=== PATIENT | female | born 1990 | race Caucasian/White ===

== ENCOUNTER 2019-05-14 14:04 | Outpatient (RCR) | payer OTHER, SELFPAY ==
[2019-04-19 14:02] VITALS: BP 106/58; PULSE 87
--- NOTE | ~2019-05-14 | US_ITS ---
EXAMINATION: US OB limited w BPP DATE: 05/14/2019 15:09 INDICATION: Biophysical profile. Third trimester. TECHNIQUE: Real-time pelvic ultrasound was performed. COMPARISON: Ultrasound 04/19/2019 FINDINGS: There is a single living fetus in vertex presentation. The placenta is anterior. heart rate is 131 beats per minute (bpm). The amniotic fluid index is 12.5 cm, which is normal. Biophysical profile performed by the technologist: breathing (30 sec sustained breathing in 30 minutes): 2 out of 2 movement (3 gross body movements in 30 minutes): 2 out of 2 tone (one episode of zvurmwn-bfaenwjwa-ttaceyt limb movement): 2 out of 2 Amniotic fluid pocket (2 cm): 2 out of 2 Total score: 8 out of 8 IMPRESSION: 1. Single living fetus in vertex presentation. 2. Biophysical profile 8 out of 8. Reviewed, dictated and finalized at location A. [employer]
--- NOTE | ~2019-05-14 | US_ITS ---
EXAMINATION: US OB BPP wo non-stress DATE: 04/19/2019 13:36 TATTOO ARTIST INDICATION: tachycardia. TECHNIQUE: Real-time transabdominal obstetric ultrasound. FINDINGS: No prior studies for comparison. There is a single living fetus in vertex presentation. The placenta is anterior without placenta pre via. cardiac activity and movement is noted with a heart rate of 142 beats per minute. Biophysical profile: breathin of 2 movement: 2 of 2 tone: 2 of 2 Amniotic flud pocket: 2 of 2 Total score: 8 of 8 IMPRESSION: 1. Single living intrauterine in vertex presentation. 2: Total biophysical profile score of 8/8. Reviewed, dictated and finalized at location B. OO ARTIST
[2019-05-14 15:31] VITALS: BP 100/54; PULSE 90
== END 2019-06-04 13:20 | disposition home or self-care (01) ==
LOC: ANHOBOP 14:04
PROVIDERS: Visit Provider Obstetrics & Gynecology
DX: O36.8130 Decreased fetal movements, third trimester, not applicable or unspecified (principal); Z3A.32 32 weeks gestation of pregnancy; Z3A.36 36 weeks gestation of pregnancy
CPT/HCPCS: 59025; 76815; 76819

== ENCOUNTER 2019-06-01 05:32 | Inpatient (IN) | payer OTHER, SELFPAY ==
[2019-06-01] VITALS (151 sets, daily range): BP systolic 73–153; BP diastolic 33–134; PULSE 47–128; RESP 16–18; TEMP 36.4–37.6; O2SAT 83–100; BMI 36.8
[2019-06-01 06:51] LABS: Basophils Absolute Auto 0.1 K/mm3 (0.0-0.1); Basophils Percent Auto 0.4 % (0.2-1.2); Eosinophils Absolute Auto 0.1 K/mm3 (0-0.3); Eosinophils Percent Auto 0.8 % (0-4.4); Hematocrit 34.6 % (37.0-47.0); Hemoglobin 11.4 g/dL (12.0-15.0); Immature Granulocyte Absolute 0.09 K/mm3 (0.00-0.031); Immature Granulocyte Percent A 0.8 % (0-0.5); Lymphocytes Absolute Auto 1.63 K/mm3 (0.9-3.2); Lymphocytes Percent Auto 13.9 % (18.3-44.2); Mean Corpuscular HGB Conc 32.9 g/dl (32-36); Mean Corpuscular Hemoglobin 27.9 pg (26-34); Mean Corpuscular Volume 84.8 fl (80-100); Mean Platelet Volume 10.1 fl (7.4-10.4); Monocytes Absolute Auto 0.6 K/mm3 (0.1-0.6); Monocytes Percent Auto 5.4 % (2.6-8.5); Neutrophils Absolute Auto 9.3 K/mm3 (1.3-6.7); Neutrophils Percent Auto 78.7 % (45.5-73.1); Platelet Count Result 306 k/mm3 (150-375); Red Blood Count 4.08 M/mm3 (4.2-5.4); Red Cell Distribution Width 14.1 % (11.5-14.5); White Blood Count 11.8 K/mm3 (4.5-10.0)
[2019-06-01] MEDS: LACTATED RINGERS 1,000 ML 125 ML IV CONT ×3 (06:59→10:45)
--- NOTE | 2019-06-01 07:00 | LDADM ---
This patient, Megan Ruiz, was admitted to Labor/Delivery/Recovery 107 on 06/01/19 at 05:32. Plans for labor, pain management and were discussed with patient. Patient/family oriented to hospital policies and general routines including ID bracelet, bed and alarms, visiting hours, pain management, procedures, bathroom and other care routines, personal items, smoking policy, room service/diet and guest tray routines, security routines, and visiting hours. Patient/Family are encouraged to report perceived risks to care and to ask questions if they do not understand what they are told or what they should do. See OBIX for further documentation.
--- NOTE | 2019-06-01 09:22 | WPDANESEPP ---
Anes - Eval Pre Procedure Procedure: Labor Epidural Date/Time: 06/01/19 09:22 Pre Op Diagnosis: iol Patient Data Age: 28 Gender: F Height: 1.65 m Weight: 100.5 kg Last Vital Signs Temp 37.2 C 06/01/19 09:00 Pulse 81 06/01/19 09:00 Resp 18 06/01/19 07:00 BP 117/75 06/01/19 09:00 Allergies Allergy/AdvReac Type Severity Reaction Status Date / Time No Known Allergies Allergy Verified 04/19/19 12:49 Home Medications Medication Instructions Recorded Confirmed Type PNV cmb#95-ferrous fumarate-FA 1 tablet PO DAILY 04/19/19 04/19/19 History [] Laboratory Tests 06/01/19 06/01/19 06/01/19 06:43 06:43 06:43 WBC 11.8 K/mm3 H K/mm3 (4.5-10.0) RBC 4.08 M/mm3 L M/mm3 (4.2-5.4) Hgb 11.4 g/dL L g/dL (12.0-15.0) Hct 34.6 % L % (37.0-47.0) MCV 84.8 fl fl (80-100) MCH 27.9 pg pg (26-34) MCHC 32.9 g/dl g/dl (32-36) RDW 14.1 % % (11.5-14.5) Plt Count 306 k/mm3 k/mm3 (150-375) MPV 10.1 fl fl (7.4-10.4) Immature Gran % (Auto) 0.8 % H % (0-0.5) Neut % (Auto) 78.7 % H % (45.5-73.1) Lymph % (Auto) 13.9 % L % (18.3-44.2) [place] % (Auto) 5.4 % % (2.6-8.5) Eos % (Auto) 0.8 % % (0-4.4) Baso % (Auto) 0.4 % % (0.2-1.2) Lymph # (Auto) 1.63 K/mm3 K/mm3 (0.9-3.2) [place] # (Auto) 0.6 K/mm3 K/mm3 (0.1-0.6) Eos # (Auto) 0.1 K/mm3 K/mm3 (0-0.3) Baso # (Auto) 0.1 K/mm3 K/mm3 (0.0-0.1) Abs Immat Gran (auto) 0.09 K/mm3 H K/mm3 (0.00-0.031) Absolute Neuts (auto) 9.3 K/mm3 H K/mm3 (1.3-6.7) Absolute Nucleated RBC 0.0 K/mm3 K/mm3 (0.0-0.012) Nucleated RBC % 0.0 % % (0.0-0.2) RPR Pending Blood Type O Positive Antibody Screen Negative Patient hx anesthesia problems: none Family hx anesthesia problems: none PMFSH Family History Family History Other No pertinent family history Social History Social History Smoking status: Never smoker Second hand tobacco smoke exposure: No Substance use: never Gender identity (if verbalized by the patient): Female Spiritual care concerns: No Exam Day of Procedure 06/01/19 09:22 Patient weight: obese Lungs: normal air movement Airway: Mallampati scale class III Neurological: alert and oriented
[2019-06-01 10:56] LABS: Rapid Plasma Reagin Non-Reactive (NonReactive)
[2019-06-01] MEDS: PHENYLEPHRINE 1,000 MCG/10 ML SYRINGE 100 MCG IV PUSH ×2 (11:39→11:44)
--- NOTE | 2019-06-01 13:02 | PM.IMHP ---
H&P: HPI History of Present Illness Chief complaint: iol Narrative: Megan Ruiz is a 28 yo @ 39.0wks who presented for induction of labor. She has been 4-5cm dilated for 2-3 weeks. She reports occasional contraction. No leakage of fluid or bleeding. No CP, SOB, fever, chills, headache, vision changes. Review of Systems Review of Systems: All systems reviewed & are unremarkable except as noted in HPI and below PMFSH Family History Family History Other No pertinent family history Social History Social History Smoking status: Never smoker Second hand tobacco smoke exposure: No Substance use: never Gender identity (if verbalized by the patient): Female Spiritual care concerns: No Meds Home Medications and Allergies Home Medications Medication Instructions Recorded Confirmed Type PNV cmb#95-ferrous fumarate-FA 1 tablet PO DAILY 04/19/19 06/01/19 History [] Allergies Allergy/AdvReac Type Severity Reaction Status Date / Time No Known Allergies Allergy Verified 04/19/19 12:49 Vital Signs Vital Signs - 24 hr 06/01/19 06:46 06/01/19 07:00 06/01/19 07:30 Temperature 37.6 C Pulse Rate 101 H 96 90 Respiratory Rate 18 Blood Pressure 94/69 L 107/63 125/71 Pulse Oximetry 06/01/19 08:01 06/01/19 08:52 06/01/19 09:00 Temperature 37.2 C Pulse Rate 97 79 81 Respiratory Rate Blood Pressure 109/52 L 115/70 117/75 Pulse Oximetry 06/01/19 09:35 06/01/19 09:40 06/01/19 09:45 Temperature Pulse Rate 82 Respiratory Rate Blood Pressure 109/73 Pulse Oximetry 100 100 97 06/01/19 09:50 06/01/19 09:55 06/01/19 09:57 Temperature Pulse Rate 101 H 89 Respiratory Rate Blood Pressure 119/71 114/90 Pulse Oximetry 100 99 06/01/19 09:59 06/01/19 10:00 06/01/19 10:03 Temperature Pulse Rate 92 87 93 Respiratory Rate Blood Pressure 114/70 109/69 110/59 L Pulse Oximetry 99 06/01/19 10:05 06/01/19 10:06 06/01/19 10:08 Temperature Pulse Rate 81 84 86 Respiratory Rate Blood Pressure 105/59 L 113/60 110/59 L Pulse Oximetry 100 06/01/19 10:09 06/01/19 10:10 06/01/19 10:12 Temperature Pulse Rate 84 84 Respiratory Rate Blood Pressure 108/60 102/57 L Pulse Oximetry 99 06/01/19 10:14 06/01/19 10:16 06/01/19 10:18 Temperature 36.6 C Pulse Rate 89 81 93 Respiratory Rate Blood Pressure 104/60 102/62 112/63 Pulse Oximetry 99 06/01/19 10:19 06/01/19 10:20 06/01/19 10:22 Temperature Pulse Rate 82 93 Respiratory Rate Blood Pressure 107/64 103/62 Pulse Oximetry 99 06/01/19 10:24 06/01/19 10:26 06/01/19 10:28 Temperature Pulse Rate 102 H 90 96 Respiratory Rate Blood Pressure 100/60 105/57 L 100/59 L Pulse Oximetry 99 06/01/19 10:29 06/01/19 10:30 06/01/19 10:32 Temperature Pulse Rate 78 96 Respiratory Rate Blood Pressure 99/66 L 98/60 L Pulse Oximetry 98 06/01/19 10:34 06/01/19 10:36 06/01/19 10:39 Temperature Pulse Rate 96 96 99 Respiratory Rate Blood Pressure 90/53 L 94/59 L 83/58 L Pulse Oximetry 98 98 06/01/19 10:40 06/01/19 10:42 06/01/19 10:43 Temperature Pulse Rate 91 99 88 Respiratory Rate Blood Pressure 86/53 L 81/52 L 97/61 L Pulse Oximetry 06/01/19 10:44 06/01/19 10:47 06/01/19 10:49 Temperature Pulse Rate 85 84 93 Respiratory Rate Blood Pressure 101/61 107/58 L 109/63 Pulse Oximetry 98 100 06/01/19 10:51 06/01/19 10:53 06/01/19 10:54 Temperature Pulse Rate 84 89 84 Respiratory Rate Blood Pressure 108/53 L 107/55 L 102/62 Pulse Oximetry 100 06/01/19 10:56 06/01/19 10:58 06/01/19 11:01 Temperature Pulse Rate 90 88 87 Respiratory Rate Blood Pressure 104/57 L 107/54 L 105/53 L Pulse Oximetry 100 100 06/01/19 11:03 06/01/19 11:04 06/01/19 11:05 Tem
--- NOTE | 2019-06-01 13:40 | PM.OBPRVD ---
OB - Delivery Note Procedure Delivery date: 06/01/19 Procedure: progressed to complete dilation and began pushing with good maternal effort, however, severe variables were noted. Right mediolateral episiotomy was cut and head immediately delivered. Nuchal cord x2 was palpated but delivered through. The shoulders and body delivered without complications. She delivered a male , Apgars 8/9, weight pending. He was immediately placed skin to skin and stimulated by the pediatric nurse. The mouth and nose were bulb suctioned and he had spontaneous cry. The umbilical cord was then clamped and cut. A segment of the cord was then collected for cord gases. The remaining cord blood was collected for typing. With pitocin running, the placenta then delivered with gentle traction on the cord. The cervix, vagina, and perineum were inspected and no other lacerations were noted. The RML episiotomy was then repaired in the normal fashion using 2-0 Vicryl. Good hemostasis was noted and the fundus was firm. Sponge, lap, needle, and instrument counts were correct at the end of the procedure. and her son were left skin to skin in the birthing suite in a stable condition. Induction method: AROM and per pitocin protocol Delivery monitor: internal FHT and internal uterine Route of delivery: Indication for instrumentation: nonreassuring FHR tracing Episiotomy description: Right Mediolateral Laceration description: None Delivery repair: vicryl Specimen: No Estimated blood loss (mL): 350 Anesthesia type: Epidural Disposition: floor Baby Date of : 06/01/19 Time of : 13:18 Weeks of gestation at delivery: 39 Infant gender: Male presentation: vertex position: Right Occiput Anterior Placenta delivery description: Expressed cord vessel description: 3 Vessels and Nuchal Cord (x2) score one minute: 8 score five minutes: 9
[2019-06-01] MEDS: ACETAMINOPHEN 325 MG TABLET 650 MG PO ×2 (14:47→19:45)
[2019-06-01] MEDS: BENZOCAINE 20% AER SPR (*SP) 56 GM CAN 1 SPRAY TOPICAL (14:49)
[2019-06-01] MEDS: WITCH HAZEL 40 PADS 1 PAD TOPICAL (14:49)
[2019-06-01] MEDS: IBUPROFEN 600 MG TABLET PO ×2 (16:19→22:05)
[2019-06-01] MEDS: CYCLOBENZAPRINE HCL 10 MG TABLET PO (22:36)
[2019-06-02] MEDS: ACETAMINOPHEN 325 MG TABLET 650 MG PO ×4 (00:15→18:52)
[2019-06-02 05:42] LABS: Hematocrit 31.2 % (37.0-47.0); Hemoglobin 9.9 g/dL (12.0-15.0)
[2019-06-02] MEDS: IBUPROFEN 600 MG TABLET PO ×3 (06:01→18:53)
[2019-06-02 08:30] VITALS: BP 129/83; PULSE 80; RESP 18; TEMP 36.6
--- NOTE | 2019-06-02 09:00 | WPDANLDPN2 ---
Anes-Prog Note L&D Date/Time: 06/02/19 09:37 Comfortable throughout: labor and delivery Neuraxial method: epidural Epidural/Spinal procedure site: clean & non-tender Neuro status: Neuro function grossly intact. Cardiovascular status: normal Respiratory status: normal Airway patency: baseline Mental status: baseline Post-Op hydration status: normal Vital Signs: Last Vital Signs Temp 36.4 C 06/01/19 19:35 Pulse 70 06/01/19 19:35 Resp 18 06/01/19 19:35 BP 120/63 06/01/19 19:35 Pulse Ox 100 06/01/19 19:35 I/O: Intake & Output 06/01/19 06/02/19 06/02/19 23:59 07:59 15:59 Output Total 445 Balance -445 Post-procedural complaints: other (Pt with complain of headache and posterior neck and shoulder pain (01/11). ) Patient feedback: Patient satisfied with anesthetic care. Other findings: Pt attempted conservative measures over night, request Epidural Blood Patch
--- NOTE | 2019-06-02 09:15 | PC.NURSE ---
Anesthesia here to see patient and do a blood patch.
--- NOTE | 2019-06-02 09:40 | P.PCNANE_ITS ---
Anes - Epidural Blood Patch PN Date/Time: 06/02/19 09:40 Consent: I have discussed with the patient/family/POA, the rationale of a lumbar epidural autologous blood patch for the treatment of post-dural puncture headache (spinal headache), including associated potential risks, benefits, comp lications and side effects. I have also discussed more conservative treatment options such as intravenous hydration, caffeine and non-prescription analgesics. The patient/family/POA, understand(s) and wish(es) to proceed with epidural autologous blood patch as treatment for the patient's post-dural puncture headache. Time-Out: A pre-procedural Time-Out was completed immediately before starting the procedure and confirmed: Patient Identification, Site, Procedure, Patient Position and the Availability of Requisite Equipment. Clinical Indications: Frontal Headache 10/10, posterior neck and shoulder Pain 10/10. Worse when standing or sitting. Pt attempted conservative treatment (Fluids, caffeine, norco, flexeril, heating pad) throught the night. She requests Epidural Blood Patch. Epidural space easily accessed at L3-4, LORT to air at 7 cm. 20ml blood drawn Sterilely per Genet Chu RN and injected easily through Touhy Needle. VSS throughout. Assisted to supine position with HOB elevated 20 degrees. Immediate relief of headache and neck Pain. (05/14) Epidural Insertion Note Patient position: sitting Skin prep: chlorhexidine and sterile drape Needle: 18 gauge Tuohy-Schliff Technique: loss of resistance (to Air) Skin anesthesia: lidocaine 1% Observations: tolerated well Complications: none
--- NOTE | 2019-06-02 12:47 | P.PNOB_ITS ---
OB - PN: Subj Subjective Date/time seen: 06/02/19 12:47 is a 28yo P1011 s/p , PPD#1 She reports doing ok, she reports significant neck and back pain. She was also reporting significant headaches, especially with sitting/standing. She underwent an epidural blood patch this AM and reports she immediately felt better, but continues to notice slight discomfort with sitting/standing. Otherwise, she is t olerating regular diet w/o N/V. She has ambulated w/o s/sx of anemia. She has passed flatus and voided spontaneously. She reports normal vaginal bleeding. She is bottle feeding, but may attempt breast feeding, reports nipple discomfort. She does desire a circumcision for her son. No STEWARD, CP, SOB, fever chills, dizziness. OB - PN: Obj Data Labs CBC & Chem 7: 06/02/19 05:26 Labs: Laboratory Results - last 24 hr 06/02/19 05:26 Hgb 9.9 L Hct 31.2 L OB - PN A/P Plan day: 1 Plan: routine care Comments: - Routine PP care - Pain meds prn; encouraged her to take ibuprofen and tylenol q4h to help with pain; can apply heating pack to sore muscles that's likely pulled or strained. Ok to take Flexeril 10mg PO QHS if NOT breast feeding - Regular diet - If headache not improved this afternoon, re-consult to anesthesia-- pt encouraged to stay hydrated and drink caffeine. May consider MgSO4 + Reglan for migraine cocktail - Ambulation encouraged - Bottle feeding - Anticipate d/c home tomorrow. Pain, fever, bleeding, HTN return precautions g iven. Pelvic rest x4 wks. F/u in clinic in 4 weeks. Time Spent With Patient Time: Total time spent is greater than 50% in coordination of care (as documented) at patient's floor/unit and/or counseling patient: Review of Systems Review of Systems: All systems reviewed & are unremarkable except as noted in HPI and below Exam Const: General: comfortable, no acute distress, alert and awake Other: Point tenderness over the left trapezius muscle Resp: Effort & Inspection: normal respiratory effort Auscultation: clear to auscultation bilaterally Cardio: Rate: regular rate GI: Auscultation: normal bowel sounds Other: fundus firm below umbilicus : Other: normal lochia on pad Psych: Appearance: grossly normal Affect: normal affect Attitude: cooperative
[2019-06-02] MEDS: DOCUSATE SODIUM 100 MG CAPSULE PO (17:50)
[2019-06-02] MEDS: POLYSACCHARIDE IRON COMPLEX 150 MG CAPSULE PO (17:50)
[2019-06-02 20:30] VITALS: BP 124/67; PULSE 91; RESP 16; TEMP 37.6; O2SAT 100
--- NOTE | 2019-06-02 21:15 | PC.NURSE ---
Patient viewed the discharge video Mother & Baby Care, The First Two Weeks . Patient was given the opportunity and encouraged to ask questions. Patient verbalized understanding of information shared and has been given the mother/baby guide for home reference.
[2019-06-03] MEDS: POLYSACCHARIDE IRON COMPLEX 150 MG CAPSULE PO (07:32)
[2019-06-03] MEDS: IBUPROFEN 600 MG TABLET PO (07:32)
[2019-06-03] MEDS: ACETAMINOPHEN 325 MG TABLET 650 MG PO (07:33)
[2019-06-03] MEDS: DOCUSATE SODIUM 100 MG CAPSULE PO (07:33)
[2019-06-03 07:35] VITALS: BP 127/71; PULSE 95; RESP 18; TEMP 36.4
--- NOTE | 2019-06-03 09:12 | PM.OBPNVD ---
OB - PN: Subj Subjective Date/time seen: 06/03/19 09:12 is a 28yo P1011 s/p , PPD#2 She reports she is doing much better today, showered and feels better. She continues to have some neck pain and headaches. She has been taking the tylenol and ibuprofen around the clock. She is also drinking caffeine which is helping the headaches. Otherwise, she is tolerating regular diet w/o N/V. She has ambulated w/o s/sx of anemia. She has passed flatus and voided spontaneously. She reports normal vaginal bleeding. She is bottle feeding. No CP, SOB, vision changes, fever chills, dizziness. OB - PN: Obj Data Labs CBC & Chem 7: 06/02/19 05:26 OB - PN A/P Plan day: 2 Plan: routine care and discharge home Comments: - Routine PP care - Pain meds prn-- rxs sent to pharmacy - Regular diet - Spinal headache-- s/p blood patch on 06/02/19, pt encouraged to stay hydrated and drink caffeine. - Ambulation encouraged - Bottle feeding - D/c home today. Pain, fever, bleeding, HTN return precautions given. Pelvic rest x4 wks. F/u in clinic in 3-4 weeks. Time Spent With Patient Time: Total time spent is greater than 50% in coordination of care (as documented) at patient's floor/unit and/or counseling patient: Review of Systems Review of Systems: All systems reviewed & are unremarkable except as noted in HPI and below Exam Const: General: comfortable, no acute distress, alert and awake Resp: Effort & Inspection: normal respiratory effort Auscultation: clear to auscultation bilaterally Cardio: Rate: regular rate GI: Auscultation: normal bowel sounds Other: fundus firm below umbilicus Psych: Appearance: grossly normal Attitude: cooperative
[2019-06-05 09:49] VITALS: BP 121/79; PULSE 81; RESP 20; TEMP 36.6
--- NOTE | 2019-06-06 08:34 | PM.OBDSVD ---
DS: Diagnosis Admitting Diagnosis Admitting Diagnosis: Encounter for supervision of normal , unspecified, unspecified trimester Discharge Diagnosis (1) : Code(s): Z34.90 - Encounter for supervision of normal , unspecified, unspecified trimester Status: Acute OB - DS: Summary OB Procedures : None OB Procedures Intrapartum: Spontaneous Vag Delivery OB Procedures: : None Peripartum Data Delivery Method: Natural Vaginal Episiotomy description: Right Mediolateral complications: spinal headache (s/p blood patch) 1: Gender: Male (s/p circumcision) Disposition of : home Status at Discharge Functional status at discharge: independent ambulation Overall status at discharge: patient is back to baseline Time Spent with Patient Time attestation: Total time spent providing and/or coordinating discharge services: Exam Narrative: Exam Narrative: Const: General: comfortable, no acute distress, alert and awake Resp: Effort & Inspection: normal respiratory effort Auscultation: clear to auscultation bilaterally Cardio: Rate: regular rate GI: Auscultation: normal bowel sounds Other: fundus firm below umbilicus Psych: Appearance: grossly normal Attitude: cooperative Discharge Plan Discharge Attending physician on discharge: Arlene Castle Discharging Clinician: Arlene Castle Anticipated Discharge Date/Time: 06/03/19 13:00 Patient Disposition: Home, Self-Care Activity: pelvic rest Diet: regular Discharge Instructions: Education: Mom and Baby Guide Given to: Mother Follow-Up: Call your delivering provider's office for an appointment to be seen in: 4-6 weeks Mom and baby should come to the [facility] for the follow-up appointment. Appointment Date/Time: June 05, 2019 at 10:00 am What to expect at your follow-up visit: Physical Assessment Call [phone] if you are unable to keep your appointment time. BREAST CARE: 1. Wear a snug supportive bra. 2. For engorgement discomfort: Bottle Feeding: A. May apply ice packs EPISIOTOMY/PERINEAL CARE: 1. Until bleeding stops, use your angy bottle after urinating 2. Change your pad frequently throughout the day 3. You may take sitz baths several times a day (fill your bathtub with warm water and soak for 20 minutes.) Do NOT bathe in the water 4. No tub baths until seen by your physician - You may shower ACTIVITY: 1. Rest as much as possible. 2. Do not exercise or lift anything heavier than your baby (such as laundry or other children.) 3. Avoid stairs or driving as much as possible. 4. Do not put anything into the vagina. No douching, tampons, or sexual activity until seen by physician. NOTIFY PHYSICIAN IF YOU HAVE ANY QUESTIONS OR IF ANY OF THE FOLLOWING SYMPTOMS OCCUR: 1. If your episiotomy becomes red, swollen, or more painful than what you have experienced in the hospital. 2. If your vaginal bleeding becomes foul smelling. 3. If your vaginal bleeding becomes more heavy than a period or if your bleeding changes from pink to bright red. However, you may pass an occasional walnut-sized clot once or twice for the first week . 4. If you experience a sharp, shooting pain in you calves. 5. If you discover a hard, reddened area on your breast or if you experience flu-like symptoms. DIET: 1. Eat regular, well-balanced meals. 2. Drink plenty of fluids daily. If , drink to thirst. Stand Alone Forms: General Discharge Information Follow-up/Referrals: Arlene Castle MD [Physician] - Discharge Medications: New acetaminophen [Mapap (acetaminophen)] 325 mg Tablet 650 mg PO Q4H PRN (Reason: Mild Pain (1-3) Or Headache) 7 Days Qty: 40 RF: 0 ibuprofen 600 mg Tablet 600 mg PO Q6H PRN (Reason: Cramping) 10 Days Qty: 30 RF: 0 Continued PNV cmb#95-ferrous fumarate-FA [] 28 mg iron- 800 mcg
== END 2019-06-03 12:41 | disposition home or self-care (01) | DRG 560 ==
LOC: ANHLDR 15:10 → ANHOB2 17:18
PROVIDERS: Admitting Provider Obstetrics & Gynecology; Visit Provider Obstetrics & Gynecology
DX: O76 Abnormality in fetal heart rate and rhythm complicating labor and delivery (principal); O69.2XX0 Labor and delivery complicated by other cord entanglement, with compression, not applicable or unspecified; O99.214 Obesity complicating childbirth; E66.9 Obesity, unspecified; O09.33 Supervision of pregnancy with insufficient antenatal care, third trimester; Z3A.39 39 weeks gestation of pregnancy; Z37.0 Single live birth; O89.4 Spinal and epidural anesthesia-induced headache during the puerperium; G97.1 Other reaction to spinal and lumbar puncture
CPT/HCPCS: 36415; 85014; 85018; 85025; 86592; 86850; 86900; 86901; A9270; J2370; J2590; J2795; J7120

== ENCOUNTER 2020-06-25 18:48 | Inpatient (IN) | payer OTHER, SELFPAY ==
[2020-06-25] VITALS (7 sets, daily range): BP systolic 105–119; BP diastolic 51–65; PULSE 75–89; TEMP 36.7–37.4; BMI 38.5
--- NOTE | 2020-06-25 19:08 | P.HP_ITS ---
H&P: HPI History of Present Illness Date/Time: 06/25/20 19:08 is a 30yo @ 37.6wks (PRASHANTH 07/[birth year]) who presents to L&D for labor. She was seen in clinic today w/ complaints of pressure/occasional contractions and increased vaginal discharge. She was found to be 6/50/-2. She reports good movement. No vaginal bleeding. No other issues. Her is complicated by - Short interval (last delivery 05/2019) - GBS + (bacteruria) - Depression/anxeity; now on zoloft - Late transfer of care from [place] @ 36wks - Back/hip pain & sciatica - Marijuana use - Obesity Chief Complaint: labor Review of Systems Review of Systems: All systems reviewed & are unremarkable except as noted in HPI and below (HPI) [facility] Family History Family History Other No pertinent family history Social History Social History Smoking status: Never smoker Second hand tobacco smoke exposure: No Substance use: never Gender identity (if verbalized by the patient): Female Spiritual care concerns: No Meds Home Medications and Allergies Home Medications Medication Instructions Recorded Confirmed Type PNV cmb#95-ferrous fumarate-FA 1 tablet PO DAILY 04/19/19 06/01/19 History [] acetaminophen [Mapap 650 mg PO Q4H PRN 7 Days #40 tablet 06/03/19 Rx (acetaminophen)] ibuprofen 600 mg PO Q6H PRN 10 Days #30 06/03/19 Rx tablet Allergies Allergy/AdvReac Type Severity Reaction Status Date / Time No Known Allergies Allergy Verified 04/19/19 12:49 Exam Const: General: cooperative, healthy appearing and comfortable Resp: Effort & Inspection: normal respiratory effort and able to speak in complete sentences Cardio: Rate: regular rate GI: GI Palp: No abdominal tenderness and Yes Soft to palpation : Other: FHT's: 135's/ mod layla/ + accels/ occasional mild variable - cat 2, reassuring TOCO; irregular ctx's Cervix: 6/50/-2 Membranes: intact, GBS + Presentation: cephalic Skin: General skin exam: normal color Neuro: General: patient oriented x3 Extrem: General: normal to inspection Psych: Appearance: grossly normal Affect: normal affect Attitude: cooperative Assessment and Plan Assessment and plan (1) Active labor at term: Status: Acute (2) GBS (group B streptococcus) UTI complicating : Qualifiers: Trimester: first trimester Qualified Code(s): O23.41 - Unspecified infection of urinary tract in , first trimester; B95.1 - Streptococcus, group B, as the cause of diseases classified elsewhere Code(s): O23.40 - Unspecified infection of urinary tract in , unspecified trimester; B95.1 - Streptococcus, group B, as the cause of diseases classified elsewhere Status: Acute Additional Plan - Admit to L&D as pt was found to be 6cm; GBS + - GBS ppx with ampicillin; plan to AROM after treatment; low dose pitocin augmentation - Continuous monitoring; overall reassuring - Epidural PRN pain
--- NOTE | 2020-06-25 19:26 | WPDHPUPDATE1 ---
History and Physical Update Update Date/Time: 06/25/20 19:26 History and Physical has been reviewed, including an updated exam of the patient. There are NO changes in the patient's condition. Risks, benefits, and alternatives have been discussed and questions answered. Patient agrees to proceed with procedure.
[2020-06-25 19:29] LABS: Basophils Absolute Auto 0.1 K/mm3 (0.0-0.1); Basophils Percent Auto 0.5 % (0.2-1.2); Eosinophils Absolute Auto 0.1 K/mm3 (0-0.3); Eosinophils Percent Auto 0.5 % (0-4.4); Hematocrit 34.6 % (37.0-47.0); Hemoglobin 11.4 g/dL (12.0-15.0); Immature Granulocyte Absolute 0.09 K/mm3 (0.00-0.031); Immature Granulocyte Percent A 0.7 % (0-0.5); Lymphocytes Absolute Auto 2.03 K/mm3 (0.9-3.2); Lymphocytes Percent Auto 15.7 % (18.3-44.2); Mean Corpuscular HGB Conc 32.9 g/dl (32-36); Mean Corpuscular Hemoglobin 27.8 pg (26-34); Mean Corpuscular Volume 84.4 fl (80-100); Mean Platelet Volume 9.8 fl (7.4-10.4); Monocytes Absolute Auto 0.5 K/mm3 (0.1-0.6); Monocytes Percent Auto 3.8 % (2.6-8.5); Neutrophils Absolute Auto 10.2 K/mm3 (1.3-6.7); Neutrophils Percent Auto 78.8 % (45.5-73.1); Platelet Count Result 291 k/mm3 (150-375); Red Cell Distribution Width 14.5 % (11.5-14.5); White Blood Count 12.9 K/mm3 (4.5-10.0)
[2020-06-25] MEDS: AMPICILLIN 2 GM/NS 100 ML 2 GM/100 ML BAG IVPB (19:30)
[2020-06-25] MEDS: LACTATED RINGERS 1,000 ML 125 ML IV CONT ×2 (19:30→23:55)
--- NOTE | 2020-06-25 19:33 | LDADM ---
This patient, Megan Ruiz, was admitted to Labor/Delivery/Recovery 106 on 06/25/20 at 18:48. Plans for labor, pain management and were discussed with patient. Patient/family oriented to hospital policies and general routines including ID bracelet, bed and alarms, visiting hours, pain management, procedures, bathroom and other care routines, personal items, smoking policy, room service/diet and guest tray routines, security routines, and visiting hours. Patient/Family are encouraged to report perceived risks to care and to ask questions if they do not understand what they are told or what they should do. See OBIX for further documentation.
[2020-06-25 20:04] LABS: Amphetamine Screen Urine Negative (Negative); Barbiturate Screen Urine Negative (Negative); Benzodiazepines Screen Urine Negative (Negative); Cannabinoid Screen Urine Positive (Negative); Cocaine Screen Urine Negative (Negative); Methadone Screen Urine Negative (Negative); Opiate Screen Urine Negative (Negative); Phencyclidine Screen Urine Negative (Negative)
[2020-06-25] MEDS: OXYTOCIN 30 UNITS/NS 500 ML 30 UNITS/500 ML BAG IV CONT (20:55)
[2020-06-25] MEDS: FAMOTIDINE 20 MG/2 ML VIAL IV PUSH (21:38)
--- NOTE | 2020-06-25 23:31 | PM.OBPNLAB ---
Pain Control Date/time seen: 06/25/20 23:31 Pain control: tolerating well Comments: will likely want epidural soon; s/p ampicillin x4hrs Pelvic Exam Dilation (cm): 6 Effacement (%): 70 station: -1 Amniotic membrane status: Ruptured (AROM, clear 2330) Contractions Monitor mode: External Contraction frequency: 3 Contraction pattern: Regular Contraction intensity: Moderate Status status: Category l Assessment and Plan Pitocin rate (mU/min): 6 Assessment: active labor Plan: continuous present management
[2020-06-25] MEDS: AMPICILLIN 1 GM/NS 50 ML 1 GM/50 ML BAG IVPB (23:53)
--- NOTE | 2020-06-25 23:59 | WPDANESEPP ---
Anes - Eval Pre Procedure Procedure: labor epidural Date/Time: 06/25/20 23:59 Surgeon: Tin Pre Op Diagnosis: Advanced Dilation Patient Data Age: 30 Gender: F Height: 1.65 m Weight: 105 kg Last Vital Signs Temp 37.0 C 06/25/20 23:33 Pulse 75 06/25/20 23:00 BP 119/64 06/25/20 23:00 Allergies Allergy/AdvReac Type Severity Reaction Status Date / Time No Known Allergies Allergy Verified 04/19/19 12:49 Home Medications Medication Instructions Recorded Confirmed Type PNV cmb#95-ferrous fumarate-FA 1 tablet PO DAILY 04/19/19 06/25/20 History [] famotidine 20 mg PO POST-TRANSFUSION 06/25/20 06/25/20 History sertraline 50 mg PO DAILY 06/25/20 06/25/20 History Laboratory Tests 06/25/20 06/25/20 06/25/20 19:21 19:21 19:21 WBC RBC Hgb Hct MCV MCH MCHC RDW Plt Count MPV Immature Gran % (Auto) Neut % (Auto) Lymph % (Auto) [place] % (Auto) Eos % (Auto) Baso % (Auto) Lymph # (Auto) [place] # (Auto) Eos # (Auto) Baso # (Auto) Abs Immat Gran (auto) Absolute Neuts (auto) Absolute Nucleated RBC Nucleated RBC % Urine Opiates Screen Negative (Negative) Urine Methadone Screen Negative (Negative) Ur Barbiturates Screen Negative (Negative) Ur Phencyclidine Scrn Negative (Negative) Ur Amphetamine Screen Negative (Negative) U Benzodiazepines Scrn Negative (Negative) Urine Cocaine Screen Negative (Negative) U Cannabinoids Screen Positive A (Negative) RPR Pending Blood Type O Positive Antibody Screen Negative 06/25/20 19:22 WBC 12.9 K/mm3 H K/mm3 (4.5-10.0) RBC 4.10 M/mm3 L M/mm3 (4.2-5.4) Hgb 11.4 g/dL L g/dL (12.0-15.0) Hct 34.6 % L % (37.0-47.0) MCV 84.4 fl fl (80-100) MCH 27.8 pg pg (26-34) MCHC 32.9 g/dl g/dl (32-36) RDW 14.5 % % (11.5-14.5) Plt Count 291 k/mm3 k/mm3 (150-375) MPV 9.8 fl fl (7.4-10.4) Immature Gran % (Auto) 0.7 % H % (0-0.5) Neut % (Auto) 78.8 % H % (45.5-73.1) Lymph % (Auto) 15.7 % L % (18.3-44.2) [place] % (Auto) 3.8 % % (2.6-8.5) Eos % (Auto) 0.5 % % (0-4.4) Baso % (Auto) 0.5 % % (0.2-1.2) Lymph # (Auto) 2.03 K/mm3 K/mm3 (0.9-3.2) [place] # (Auto) 0.5 K/mm3 K/mm3 (0.1-0.6) Eos # (Auto) 0.1 K/mm3 K/mm3 (0-0.3) Baso # (Auto) 0.1 K/mm3 K/mm3 (0.0-0.1) Abs Immat Gran (auto) 0.09 K/mm3 H K/mm3 (0.00-0.031) Absolute Neuts (auto) 10.2 K/mm3 H K/mm3 (1.3-6.7) Absolute Nucleated RBC 0.0 K/mm3 K/mm3 (0.0-0.012) Nucleated RBC % 0.0 % % (0.0-0.2) Urine Opiates Screen Urine Methadone Screen Ur Barbiturates Screen Ur Phencyclidine Scrn Ur Amphetamine Screen U Benzodiazepines Scrn Urine Cocaine Screen U Cannabinoids Screen RPR Blood Type Antibody Screen Patient hx anesthesia problems: none Family hx anesthesia problems: none PMFSH Family History Family History Other No pertinent family history Social History Social History Smoking status: Never smoker Second hand tobacco smoke exposure: No Substance use: never Last use: 06/25/20 Gender identity (if verbalized by the patient): Female Sexual Orientation (if Verbalized by the Patient): Straight or Heterosexual Spiritual care concerns: No Exam Day of Procedure 06/25/20 23:59
[2020-06-26] VITALS (57 sets, daily range): BP systolic 80–134; BP diastolic 50–89; PULSE 39–180; RESP 16–18; TEMP 36.3–37.4; O2SAT 80–100
[2020-06-26] MEDS: LACTATED RINGERS 1,000 ML 125 ML IV CONT (01:02)
--- NOTE | 2020-06-26 01:53 | PM.OBPRVD ---
OB - Delivery Note Procedure Delivery date: 06/26/20 events: Labor Augmentation Intrapartal events: Precipitous Labor < 3 hours Delivery augmentation: rupture of membranes and pitocin Delivery monitor: external FHT and external uterine Route of delivery: Laceration Description: None Specimen: No Quantitative Blood Loss (ml): 150 Anesthesia type: Epidural Disposition: floor Baby Date of : 06/26/20 Time of : 01:39 Weeks of gestation at delivery: 38 gender: Female Weight (pounds): 6 Weight (ounces): 2 presentation: vertex Placenta delivery description: Expressed cord vessel description: 3 Vessels score one minute: 8 score five minutes: 9 Narrative: The patient rapidly progressed to complete dilation. She had a strong desire to push and was unable to stop pushing as her epidural was not providing full relief. She delivered her daughter after involuntarily pushing without complications, with nursing staff present. I then arrived in the room. The had spontaneous cry and the umbilical cord was clamped and cut. Infant was then immediately placed skin to skin with mom. The foot of the bed was then removed. A segment of the cord was collected for cord gases and the remaining cord blood was collected for typing. With Pitocin running and gentle downward traction on the umbilical cord, the placenta delivered without complications. The vagina and perineum were examined and no lacerations were noted. The patient would not tolerate exam of the cervix, however, no brisk bleeding was noted and good uterine tone was palpated abdominally. The patient was cleaned and the bed was returned. Mom and baby were left bonding in the birthing suite in a stable condition. Sponge, lap, instrument, needle counts were correct at the end of the procedure.
[2020-06-26] MEDS: OXYTOCIN 30 UNITS/NS 500 ML 30 UNITS/500 ML BAG 125 UNITS IV CONT (02:15)
[2020-06-26] MEDS: WITCH HAZEL 40 PADS 1 PAD TOPICAL (03:47)
[2020-06-26] MEDS: IBUPROFEN 600 MG TABLET PO ×3 (03:47→22:25)
[2020-06-26] MEDS: BENZOCAINE 20% AER SPR (*SP) 56 GM CAN 1 SPRAY TOPICAL (03:47)
[2020-06-26 07:09] LABS: Rapid Plasma Reagin Non-Reactive (NonReactive)
--- NOTE | 2020-06-26 11:37 | PCCCNOTE ---
Received referral for marijuana use and mental health history. Spoke to pt. and significant other/FOB at bedside. Pt. confirms use of THC during for appetite and nausea. She is now on Zoloft for depression and anxiety. She lives with her significant other/FOB, their 1 year old and her brother in law. She plans to return home with them and at discharge. She indicates having all needed items to care for at return home. She indicates having support from significant others family and friends. She was on WIC with her first child and plans to contact [place] again at discharge. She declines any other substance use. She declines any previous DCFS involvement. Reported above to DCFS and it does not meet criteria for an investigation; information has been documented and will be kept on file. Intake ID#[id number]. Offered pt. additional resources and she accepted same. Encouraged she contact any/all of interest. Spoke to nursing and she has no other concerns at this time. No further care coordination needs indicated.
--- NOTE | 2020-06-26 12:25 | PM.OBPNVD ---
OB - PN: Subj Subjective Date/time seen: 06/26/20 12:22 PPD#0 reports doing well today. She reports her pain is controlled; mild back pain from the epidural. She is tolerating regular diet. She has ambulated w/o symptoms of anemia. She has voided and passed gas. She states her bleeding is light. She is bottle feeding. She would like to go home tomorrow. She would like a depo shot prior to discharge. She denies N/V, fever, chills, CP, SOB, STEWARD, vision changes, dizziness or palpitations. OB - PN: Obj Data Labs CBC & Chem 7: 06/25/20 19:22 Labs: Laboratory Results - last 24 hr 06/25/20 06/25/20 06/25/20 19:21 19:21 19:21 WBC RBC Hgb Hct MCV MCH MCHC RDW Plt Count MPV Immature Gran % (Auto) Neut % (Auto) Lymph % (Auto) [place] % (Auto) Eos % (Auto) Baso % (Auto) Lymph # (Auto) [place] # (Auto) Eos # (Auto) Baso # (Auto) Abs Immat Gran (auto) Absolute Neuts (auto) Absolute Nucleated RBC Nucleated RBC % Urine Opiates Screen Negative Urine Methadone Screen Negative Ur Barbiturates Screen Negative Ur Phencyclidine Scrn Negative Ur Amphetamine Screen Negative U Benzodiazepines Scrn Negative Urine Cocaine Screen Negative U Cannabinoids Screen Positive A RPR Non-reactive Blood Type O Positive Antibody Screen Negative 06/25/20 19:22 WBC 12.9 H RBC 4.10 L Hgb 11.4 L Hct 34.6 L MCV 84.4 MCH 27.8 MCHC 32.9 RDW 14.5 Plt Count 291 MPV 9.8 Immature Gran % (Auto) 0.7 H Neut % (Auto) 78.8 H Lymph % (Auto) 15.7 L [place] % (Auto) 3.8 Eos % (Auto) 0.5 Baso % (Auto) 0.5 Lymph # (Auto) 2.03 [place] # (Auto) 0.5 Eos # (Auto) 0.1 Baso # (Auto) 0.1 Abs Immat Gran (auto) 0.09 H Absolute Neuts (auto) 10.2 H Absolute Nucleated RBC 0.0 Nucleated RBC % 0.0 Urine Opiates Screen Urine Methadone Screen Ur Barbiturates Screen Ur Phencyclidine Scrn Ur Amphetamine Screen U Benzodiazepines Scrn Urine Cocaine Screen U Cannabinoids Screen RPR Blood Type Antibody Screen OB - PN A/P Assessment and Plan (1) Normal vaginal delivery: Code(s): O80 - Encounter for full-term uncomplicated delivery Status: Acute Plan day: 0 Plan: routine care and discharge home (tomorrow) Comments: - f/u in clinic in 4wks - ER return precautions discussed: HTN, n/v/pain, fever, bleeding - pelvic rest, take meds as prescribed. Time Spent With Patient Time: Total time spent is greater than 50% in coordination of care (as documented) at patient's floor/unit and/or counseling patient: Review of Systems Review of Systems: All systems reviewed & are unremarkable except as noted in HPI and below (HPI) Exam Const: General: cooperative, healthy appearing, comfortable and no acute distress Nutritional Appearance: obese Resp: Effort & Inspection: normal respiratory effort and able to speak in complete sentences Auscultation: clear to auscultation bilaterally Cardio: Rate: regular rate GI: Inspection: normal to inspection and non-distended GI Palp: No abdominal tenderness and Yes Soft to palpation Auscultation: normal bowel sounds : Other: fundus firm Skin: General skin exam: normal color Neuro: General: patient oriented x3 Psych: Appearance: grossly normal Affect: normal affect Attitude: cooperative
[2020-06-26] MEDS: ACETAMINOPHEN 325 MG TABLET 650 MG PO ×2 (13:13→21:30)
[2020-06-26] MEDS: medroxyPROGESTERone ACETATE IM 150 MG/ML SYR IM (17:02)
[2020-06-26] MEDS: DOCUSATE SODIUM 100 MG CAPSULE PO (17:02)
[2020-06-26] MEDS: SERTRALINE HCL 50 MG TABLET PO (17:10)
[2020-06-27] MEDS: ACETAMINOPHEN 325 MG TABLET 650 MG PO (03:41)
[2020-06-27 04:45] LABS: Hematocrit 30.9 % (37.0-47.0); Hemoglobin 9.9 g/dL (12.0-15.0)
--- NOTE | 2020-06-27 07:38 | WPDANLDPN2 ---
Anes-Prog Note L&D Date/Time: 06/27/20 07:38 Comfortable throughout: labor and delivery Neuraxial method: epidural Epidural/Spinal procedure site: clean & non-tender Neuro status: Neuro function grossly intact. Cardiovascular status: normal Respiratory status: normal Airway patency: baseline Mental status: baseline Post-Op hydration status: normal Vital Signs: Last Vital Signs Temp 36.3 C L 06/26/20 21:00 Pulse 65 06/26/20 21:00 Resp 16 06/26/20 21:00 BP 117/62 06/26/20 21:00 Pulse Ox 99 06/26/20 21:00 Pain score (VAS): 0 Post-procedural complaints: none Patient feedback: Patient satisfied with anesthetic care.
[2020-06-27 08:10] VITALS: BP 117/62; PULSE 75; RESP 16; TEMP 36.9; O2SAT 99
[2020-06-27 09:00] VITALS: PULSE 75; RESP 16; O2SAT 99
[2020-06-27] MEDS: DOCUSATE SODIUM 100 MG CAPSULE PO ×2 (09:31→16:48)
[2020-06-27] MEDS: IBUPROFEN 600 MG TABLET PO (09:31)
[2020-06-27] MEDS: POLYSACCHARIDE IRON COMPLEX 150 MG CAPSULE PO ×2 (09:31→16:48)
[2020-06-27] MEDS: SERTRALINE HCL 50 MG TABLET PO (09:32)
--- NOTE | 2020-06-27 09:55 | P.PNOB_ITS ---
OB - PN: Subj Subjective Date/time seen: 06/27/20 09:55 30yo s/p on 06/26. Doing well this morning. pain is well controlled. Lochia minimal. Ambulating. Bottle feeding. OB - PN: Obj Data Labs CBC & Chem 7: 06/27/20 03:47 Labs: Laboratory Results - last 24 hr 06/27/20 03:47 Hgb 9.9 L Hct 30.9 L OB - PN A/P Assessment and Plan (1) Normal vaginal delivery: Code(s): O80 - Encounter for full-term uncomplicated delivery Status: Acute Assessment and Plan: Routine care Pain management DC home today Time Spent With Patient Time: Total time spent is greater than 50% in coordination of care (as documented) at patient's floor/unit and/or counseling patient: Exam Const: General: cooperative, healthy appearing, comfortable and no acute distr ess Nutritional Appearance: obese Orientation/consciousness: patient oriented x3 Resp: Effort & Inspection: normal respiratory effort and able to speak in complete sentences Auscultation: clear to auscultation bilaterally Cardio: Rate: regular rate : Other: fundus firm Neuro: General: patient oriented x3 Psych: Appearance: grossly normal Affect: normal affect Attitude: cooperative
--- NOTE | 2020-06-27 09:56 | PM.OBDSVD ---
DS: Admitting Diagnosis Admitting Diagnosis Admitting Diagnosis: Labor DS: Discharge Diagnosis Discharge Diagnosis (1) Normal vaginal delivery: Code(s): O80 - Encounter for full-term uncomplicated delivery Status: Acute Assessment and Plan: Routine care Pain management DC home today OB - DS: Summary OB Procedures : None OB Procedures Intrapartum: Spontaneous Vag Delivery OB Procedures: : None Time Spent with Patient Time attestation: Total time spent providing and/or coordinating discharge services: Exam Const: General: cooperative, healthy appearing, comfortable and no acute distress Nutritional Appearance: obese Orientation/consciousness: patient oriented x3 Resp: Effort & Inspection: normal respiratory effort and able to speak in complete sentences Auscultation: clear to auscultation bilaterally Cardio: Rate: regular rate : Other: fundus firm Neuro: General: patient oriented x3 Psych: Appearance: grossly normal Affect: normal affect Attitude: cooperative DS: Data Data Completed and Pending Labs on day of discharge: Labs from last 24 hours 06/27/20 03:47 Hgb 9.9 L Hct 30.9 L Discharge Plan Discharge Attending physician on discharge: Arlene Castle Consulting providers: Shivam Bourgeois Discharging Clinician: Arlene Castle Anticipated Discharge Date/Time: 06/27/20 12:00 Patient Disposition: Home, Self-Care Activity: may shower and pelvic rest Diet: as tolerated and regular Patient Instructions: Antibiotic Form Stand Alone Forms: General Discharge Information Follow-up/Referrals: Arlene Castle MD [Physician] - 4 Weeks Discharge Medications: New acetaminophen [Mapap (acetaminophen)] 325 mg Tablet 650 mg PO Q6H PRN (Reason: Mild Pain (1-3) Or Headache) 10 Days Qty: 60 RF: 0 ibuprofen 600 mg Tablet 600 mg PO Q6H PRN (Reason: Cramping) 10 Days Qty: 40 RF: 0 Continued famotidine 20 mg tablet 20 mg PO POST-TRANSFUSION 30 Days Qty: 30 RF: 0 sertraline 50 mg tablet 50 mg PO DAILY 30 Days Qty: 30 RF: 0 Discontinued PNV cmb#95-ferrous fumarate-FA [] 28 mg iron- 800 mcg Tablet 1 tablet PO DAILY RF: 0 Date of admission: 06/25/20 18:48 Primary Care Provider: PHYSICIAN,ROAD PACKER OPERATOR Admitting Provider: Arlene Castle Attending physician on admission: Arlene Castle Condition: Stable
[2020-06-27 10:30] VITALS: TEMP 36.6
[2020-06-27 20:00] VITALS: BP 126/72; PULSE 75; RESP 18; TEMP 36.7; O2SAT 98
[2020-06-28] MEDS: IBUPROFEN 600 MG TABLET PO ×2 (00:05→11:08)
--- NOTE | 2020-06-28 08:00 | PC.NURSE ---
PT introductions made and plan of care discussed per post , pain management, bottle feeding, daily care activities and pending discharge to home. PT verbalized understanding of such care.
[2020-06-28 10:30] VITALS: BP 123/55; PULSE 71; RESP 18; TEMP 37; O2SAT 99
--- NOTE | 2020-06-28 11:00 | PC.NURSE ---
PT and fob received discharge instructions per protocol using mom baby care guide and one to one discussion. no barriers to learning were identified. PT verbalized understanding of such care.
[2020-06-28] MEDS: ACETAMINOPHEN 325 MG TABLET 650 MG PO (11:07)
[2020-06-28] MEDS: POLYSACCHARIDE IRON COMPLEX 150 MG CAPSULE PO (11:08)
[2020-06-28] MEDS: SERTRALINE HCL 50 MG TABLET PO (11:08)
[2020-06-28] MEDS: DOCUSATE SODIUM 100 MG CAPSULE PO (11:08)
--- NOTE | 2020-06-28 11:35 | PC.NURSE ---
PT discharged to home ambulatory accompanied by fob and infant and taken to waiting car. Follow up appts confirmed
== END 2020-06-28 11:35 | disposition home or self-care (01) | DRG 560 ==
LOC: ANHLDR 06-26 01:47 → ANHOB2 06-26 04:28
PROVIDERS: Admitting Provider Obstetrics & Gynecology; Visit Provider Obstetrics & Gynecology
DX: O99.824 Streptococcus B carrier state complicating childbirth (principal); Z37.0 Single live birth; Z3A.38 38 weeks gestation of pregnancy; O62.3 Precipitate labor; O99.344 Other mental disorders complicating childbirth; F41.8 Other specified anxiety disorders; O99.214 Obesity complicating childbirth; E66.9 Obesity, unspecified
CPT/HCPCS: 36415; 80307; 85014; 85018; 85025; 86592; 86850; 86900; 86901; A9270; J0290; J1050; J2590; J2795; J7120

== ENCOUNTER 2023-12-29 18:08 | Emergency (ER) | payer OTHER, SELFPAY ==
--- NOTE | ~2023-12-29 | XR_ITS ---
EXAM: XR finger 2nd LT min 2V DATE: 12/29/2023 18:29 HISTORY: pain with swelling . COMPARISON: None available. FINDINGS: Normal mineralization. No fracture or dislocation. No lytic or blastic lesion. Joint space s are maintained. No erosion or periosteal change. Soft tissue swelling over the left second digit. IMPRESSION: No acute osseous finding in the left second digit. Reviewed, dictated and finalized at location K.
[2023-12-29 18:10] VITALS: BP 112/64; PULSE 74; RESP 16; TEMP 36.9; O2SAT 98
[2023-12-29] MEDS: IBUPROFEN 600 MG TABLET PO (18:24)
--- NOTE | 2023-12-29 18:43 | ED.UPPEXIN ---
HPI - Extremity Injury (Upper) General Chief Complaint: Extremity Injury, Upper Stated Complaint: finger swelling Source: patient Mode of arrival: ambulatory Limitations: no limitations History of Present Illness HPI narrative: this is a 33-year-old female with no significant past medical history presents with left index finger pain with swelling patient unaware of any injuries has not tried any p.o. medication for pain has been using ice with some minimal relief there is no numbness or tingling there is no bruising just some swelling and tenderness with movement palpation. complaint: injury to: left Onset (ago): day(s) Other Extremity Injury: Left: fingers ( index finger pain and swelling) Handedness: right Related Data Allergies Allergy/AdvReac Type Severity Reaction Status Date / Time No Known Allergies Allergy Verified 12/29/23 18:13 Review of Systems Review of Systems: All systems reviewed & are unremarkable except as noted in HPI and below PMFSH Past Medical History Medical History Patient denies medical problems Family History Family History Other No pertinent family history Social History Social History Smoking status: Never smoker Second hand tobacco smoke exposure: No Substance use: never Last use: 06/25/20 Gender identity (if verbalized by the patient): Female Sexual Orientation (if Verbalized by the Patient): Straight or Heterosexual Spiritual care concerns: No Exam Const: General: healthy appearing and no acute distress Nutritional Appearance: well nourished Resp: Effort & Inspection: normal respiratory effort Auscultation: clear to auscultation bilaterally Cardio: Rate: regular rate Rhythm: regular rhythm Skin: General skin exam: normal color Rashes: no rashes Wounds: no wounds Extrem: Other: tenderness and swelling left index finger Course Course Emergency Course: x-ray performed shows no acute fractures finger splint applied and dose of Motrin given. Vital Signs Vital signs: Vital Signs Temperature 36.9 C 12/29/23 18:10 Pulse Rate 74 12/29/23 18:10 Respiratory Rate 16 12/29/23 18:10 Blood Pressure 112/64 12/29/23 18:10 Pulse Oximetry 98 12/29/23 18:10 Oxygen Delivery Room Air 12/29/23 18:10 Temperature 36.9 C 12/29/23 18:10 Pulse Rate 74 12/29/23 18:10 Respiratory Rate 16 12/29/23 18:10 Blood Pressure 112/64 12/29/23 18:10 Pulse Oximetry 98 12/29/23 18:10 Oxygen Delivery Room Air 12/29/23 18:10 Critical Care Time Critical Care Time Critical Care Time: No Discharge Plan Discharge Clinical Impression: Finger sprain Qualifiers: Encounter type: initial encounter Finger: index finger Sprain of finger site: unspecified site Laterality: left Qualified Code(s): S63.611A - Unspecified sprain of left index finger, initial encounter Patient Disposition: Home, Self-Care Condition: Stable Instructions: Antibiotic Form, Finger Sprain (ED) Additional Instructions: advised to take medication as directed and follow up with primary within 1 to 2 weeks further evaluation treatment. Prescriptions: New naproxen 500 mg tablet 500 mg PO BID Qty: 14 0RF Follow-up/Referrals: UNKNOWN,DOCTOR [Primary Care Provider] - Time of Disposition: 18:49
== END 2023-12-29 18:50 | disposition home or self-care (01) ==
LOC: CHSED 18:49
PROVIDERS: Emergency Provider Emergency Medicine
DX: S63.611A Unspecified sprain of left index finger, initial encounter (principal); X58.XXXA Exposure to other specified factors, initial encounter
CPT/HCPCS: 29130; 73140; 99283; A9270

== ENCOUNTER 2024-04-15 11:28 | Emergency (ER) | payer OTHER, SELFPAY ==
--- NOTE | ~2024-04-15 | XR_ITS ---
XR toe 1st RT min 2V DATE: 04/15/2024 12:11 INDICATION: Injury. Pain and swelling. TECHNIQUE: 3 views COMPARISON: None FINDINGS: There is soft tissue swelling of the right great toe. There are 2 relatively smooth small bony densities at the anterior aspect of the base of the distal p halanx on the lateral view, measuring up to approximately 3.2 and 1.4 mm, likely chronic sesamoid bon es. Otherwise no fracture or dislocation, periosteal reaction or bone destruction is noted. No subcutaneo us emphysema or radiopaque foreign body. IMPRESSION: Soft tissue swelling. No apparent recent fracture or dislocation Reviewed, dictated and finalized at location A. CONSULTANT
[2024-04-15 11:28] VITALS: BP 127/84; PULSE 91; RESP 16; TEMP 36.7; O2SAT 100
--- NOTE | 2024-04-15 11:51 | ED_ITS ---
HPI - General Adult General Chief complaint: Extremity Injury, Lower Stated complaint: right foot injury Time Seen by Provider: 04/15/24 11:51 Source: patient Mode of arrival: ambulatory Limitations: no limitations History of Present Illness HPI narrative: 33-year-old white female some a stepped on her right great toe a week ago complains of persistent pain. stepped on her great toe with his steel- toed shoes 1 week ago complains of pain with walking and moving and touching the great toe on the right. She says it tingles on the end. Denies any other injuries. Otherwise she is eating drinking voiding stooling fine no other swelling injuries cough fever sore throat runny nose rash or itching bleeding or or bruising. Other complaints Related Data Home Medications ?Medication ?Instructions ?Recorded ?Confirmed ?Last Taken ?Type No Home Medications 04/15/24 04/15/24 Unknown History Allergies Allergy/AdvReac Type Severity Reaction Status Date / Time No Known Allergies Allergy Verified 04/15/24 11:35 Review of Systems Review of Systems: All systems reviewed & are unremarkable except as noted in HPI and below PMFSH Past Medical History Medical History Patient denies medical problems Family History Family History Other No pertinent family history Social History Social History Smoking status: Never smoker Second hand tobacco smoke exposure: No Substance use: never Last use: 06/25/20 Gender identity (if verbalized by the patient): Female Sexual Orientation (if Verbalized by the Patient): Straight or Heterosexual Spiritual care concerns: No Exam Narrative: right great toe is mildly swollen with sublingual hematoma. Tender diffusely. Decreased range of motion. Rest of foot is nontender DP and PT pulses are +2 equal bilateral. Course Vital Signs Vital signs: Vital Signs Temperature 36.7 C 04/15/24 11:28 Pulse Rate 91 04/15/24 11:28 Respiratory Rate 16 04/15/24 11:28 Blood Pressure 127/84 04/15/24 11:28 Pulse Oximetry 100 04/15/24 11:28 Oxygen Delivery Room Air 04/15/24 11:28 Temperature 36.7 C 04/15/24 11:28 Pulse Rate 91 04/15/24 11:28 Respiratory Rate 16 04/15/24 11:28 Blood Pressure 127/84 04/15/24 11:28 Pulse Oximetry 100 04/15/24 11:28 Oxygen Delivery Room Air 04/15/24 11:28 Medical Decision Making MDM Narrative Medical decision making narrative: ?Patient placed in room: to ? History and physical was performed. x-ray of the right great toe showed no fracture dislocation. Independent Historian: patient External Source Review: Differential Dx includes but not limited to: Fracture dislocation subungual hematoma Medications were Reviewed: Medications given: procedure note trephination of the nail great toe. Digital block of the great toe using 50 50 mixture of 1% lidocaine and 0.5% Marcaine 3 cc was used to block the toe. Then electrocautery was used to put a hole in great right toenail and 2-3 ml of serosanguineous fluid was expelled. Band- Aid was applied patient a tolerated procedure well. Independently Interpreted by me: x-ray the right toe was negative as independently interpreted by me. Shared decision Making: Evaluation was discussed all questions were asked and answered patient agreed with the plan. Return if you get worse or develops any new symptoms or any signs of infection. Social Situation Impacting Patients Care: Discussed with Dr. GEE DIAGNOSIS: Subungal hematoma of the right great toe with contusion DISPOSITION : discharge CONDITION AT DISCHARGE: stable Vital Signs Vital Signs: Vital Signs Temperature 36.7 C 04/15/24 11:28 Pulse Rate 91 04/15/24 11:28 Respiratory Rate 16 04/15/24 11:28 Blood Pressure 127/84 04/15/24 11:28 Pulse Oximetry 100 04/15/24 11:28 Oxygen Delivery Room Air 04/15/24 11:28 Temperature 36.7 C 04/15/24 11:28 Pulse Rate 91 04/15/24 11:28 Respiratory Rate 16 04/15/24 11:28 Blood Pressure 127/84 04/15/24 11:28 Pulse Oximetry 100 04/15/24 11:28 Oxygen Delivery Room Air 04/15/24 11:28 Discharge Plan Discharge Clinical Impression: Subungual hematoma of great toe of right foot Qualifiers: Encounter type: initial encounter Qualified Code(s): S90.211A - Contusion of right great toe with damage to nail, initial encounter Contusion of toe of right foot Qualifiers: Encounter type: initial encounter Toe: great toe Damage to nail status: without damage Qualified Code(s): S90.111A - Contusion of right great toe without damage to nail, initial encounter Patient Disposition: Home, Self-Care Condition: Stable Instructions: Subungual Hematoma (ED) Additional Instructions: Tylenol and or ibuprofen as needed for pain. Return any signs of infection. Return if you get worse or develops any new symptoms. Patient Language: Citizen Of [place] Prescriptions: No Action No Home Medications Follow-up/Referrals: UNKNOWN,DOCTOR [Primary Care Provider] - Time of Disposition: 15:01
[2024-04-15] MEDS: LIDOCAINE 1% LOCAL INJ 10 ML VIAL 5 ML INFILTRATE (12:50)
[2024-04-15] MEDS: BUPivacaine HCL 0.5% 10 ML AMP 3 ML INFILTRATE (14:36)
[2024-04-15 15:05] VITALS: BP 121/69; PULSE 69; RESP 16; TEMP 36.8; O2SAT 97
== END 2024-04-15 15:20 | disposition home or self-care (01) ==
PROVIDERS: Emergency Provider Emergency Medicine
DX: S90.211A Contusion of right great toe with damage to nail, initial encounter (principal); S90.111A Contusion of right great toe without damage to nail, initial encounter; W50.0XXA Accidental hit or strike by another person, initial encounter
CPT/HCPCS: 11740; 73660; 99283; J2003

== ENCOUNTER 2024-10-23 17:15 | Emergency (ER) | payer OTHER, SELFPAY ==
[2024-10-23 17:15] VITALS: BP 117/68; PULSE 74; RESP 16; TEMP 36.8; O2SAT 97
--- OUTSIDE RECORDS SUMMARY | 2024-10-23 17:21 | XMS_ITS | Data Portability ---
Author Organization [employer] , [facility]_Alex Address [address] [place] [address] Assessment No assessment recorded. Plan of Treatment Reminders Order Date Submit Date Provider Last Modified By Organization Details Last Modified Time Details Appointments None recorded. Lab None recorded. Referral None recorded. Procedures None recorded. Surgeries None recorded. Imaging US, obstetric, biophysical profile 2022 023 [email or web address] [facility] [place], [address] [place], [address], 3 14:41:01 US, doppler, umbilical artery velocimetry 2022 023 [email or web address] Not available 3 12:19:10 US, obstetric, follow-up 2022 023 [email or web address] Not available 3 14:12:35 US, obstetric, 2nd or 3rd trimester, additional gestation 2022 023 [email or web address] Not available 3 12:19:09 Medication Orders None recorded. Patient TargetsNo targets recorded. Patient InstructionsNo instructions recorded. Reason for Referral None Reported. Results Created Date Observation Date Name Description Value Unit Range Abnormal Flag Note LastModifiedBy Organization Detail LastModifiedTime 07/08/19 23 US, obste tric, bioph ysica l profi le No observ ation record ed. [email or web address] [facility] [address] [place], [address], 07/07/2022 11:54:48 07/11/19 23 07/07/2022 US, obste tric, bioph ysica l profi le No observ ation record ed. [email or web address], [place], [address], 07/10/2022 12:25:08 07/16/19 23 07/15/2022 US, obste tric, mater nal evalu ation + anato my No observ ation record ed. [facility] Genetic Counselor [address] [place] [address] [address], [place], [address], 08/23/2022 11:37:23 07/16/19 23 07/15/2022 US, obste tric, follo w-up No observ ation record ed. [address] Genetic Counselor [address] [place] [address] 17, [place], [address], 08/22/2022 12:41:25 07/21/19 23 07/15/2022 US, obste tric, mater nal evalu ation + anato my, singl e gesta tion No observ ation record ed. [facility] Genetic Counselor [facility] [facility] [address], [place], [address], 08/23/2022 11:38:58 07/21/19 23 07/15/2022 US, obste tric, follo w-up No observ ation record ed. [address] Genetic Counselor [address] [place] [address] 17, [place], [address], 08/22/2022 12:41:26 07/30/19 23 07/29/2022 US, obste tric, limit ed No observ ation record ed. [facility] Maternal Medicine [facility] [facility] [address], [place], [address], 08/23/2022 11:39:22 07/30/19 23 07/29/2022 US, obste tric, limit ed No observ ation record ed. [facility] Not Available 2022 11:39:42 05/11/20 23 08/12/2022 US, obste tric, follo w-up No observ ation record ed. [facility] Genetic Counselor [address] [facility] [address], [place], [address], 08/23/2022 11:39:58 08/20/19 23 08/19/2022 US, obste tric, limit ed No observ ation record ed. [facility] Maternal Medicine [address] [facility] [address], [place], [address], 08/23/2022 11:40:13 08/20/19 23 08/19/2022 US, obste tric, follo w-up No observ ation record ed. [address], [address], 08/22/2022 12:41:26 09/04/19 23 09/03/2022 US, obste tric, follo w-up No observ ation record ed. [email or web address] Maternal Medicine [address] [facility] [address], [place], [address], 09/12/2022 17:18:44 09/04/19 23 09/03/2022 US, obste tric, follo w-up No observ ation record ed. [address] [facility] [address] [place], [address], 09/12/2022 17:18:45 09/10/19 23 09/09/2022 US, obste tric No observ ation record ed. [email or web address] [facility] Genetic Counselor [address] [facility] [address], [place], [address], 09/15/2022 11:39:33 09/10/19 23 09/09/2022 US, obste tric, mater nal evalu ation + anato my No observ ation record ed. [email or web address] Not Available 09/02 11:39:48 Result Notes None recorded. Problems Name Problem SNOMED Code Status Onset Date Resolution Date Notes Provider Name and Address Organization Details Recorded Time Twin pregnanc y [id number] Completed monochrio marcelle and diamnioti c and had been seeing MFM at [facility] and had an incident and 05-25-22 had anatomy w/[employer] tech and didnt want to drive that far and hopes for a vaginal delivery Yumiko Vyas null, [facility] 13:11:06 Obesity 780482250 Completed type 2 Yumiko Vyas null, [place] [facility] 13:11:06 Pregnanc y 39715436 Completed 202212/08/2022 Yumiko Vyas null, [facility] 13:11:09 Problem Notes None recorded. Procedures Surgical History Date Name Laterality Status Provider Name and Address Organization Details Recorded Time 06/25/2021 Date of Last Pap Smear completed [facility] 07/07/2022 10:44:01 Imaging Results None recorded. Procedure Notes None recorded. Medical Equipment None Reported. Allergies No known drug allergies Medications Not known to be on any medication Vitals Date Recorded Body weight Provider Name an d Address Organization Details Last Updated DateTime 07/07/2022 915621.341402 g Mary Jo Serrano [facility] 07/07/2022 11:55:03 Date Recorded Body temperature Body mass index (BMI) Body height Systolic And Diastolic Provider Name and Address Organization Details Last Updated DateTime 07/07/2022 97.6 [degF] 39 kg/m2 165.1 cm 118/86 mm[Hg] [facility] 07/07/2022 10:53:02 Date Recorded Body weight Provider Name an d Address Organization Details Last Updated DateTime 09/10/2022 825251.11188 g CARMINA GOLDMAN DO [address] [facility], [place], [address], [facility] 09/12/2022 10:27:16 Date Recorded Body height Body mass index (BMI) Body temperature Systolic And Diastolic Provider Name and Address Organization Details Last Updated DateTime 09/10/2022 165.1 cm 41.3 kg/m2 97.5 [degF] 132/72 mm[Hg] Yumiko Vyas [facility] 09/10/2022 10:38:20 Social History Question Answer Notes LastModified by Organizat ion Details LastModified Time Tobacco Smoking Status Never Smoker Arlene bailey, [facility] 07/07/2022 10:44:10 Are You Blind Or Do You Have Difficulty Seeing? No [email or web address] Information not available 07/07/2022 Are You Deaf Or Do You Have Serious Difficulty Hearing? No [email or web address] Information not available 07/07/2022 What Type Of Diet Are You Following? REGULAR [email or web address] Information not available 07/07/2022 Are There Any Occupational Health Risks Where You Work? 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 Yes Information not available 07/07/2022 Sex: Unknown Functional Status Question Answer Note LastModified by Organizat ion Details LastModified Time Do you use any illicit or recreational drugs? No [email or web address] Information not available 07/07/2022 What is your level of alcohol consumption? None [email or web address] Information not available 07/07/2022 Are you currently employed? Yes [email or web address] Information not available 07/07/2022 Do you or have you ever used e-cigarettes or vape? Never used electronic cigarettes [email or web address] Information not available 07/07/2022 What is your exercise level? Occasional [email or web address] Information not available 07/07/2022 Mental Status None recorded. Family History Relationship Description Onset Age of this Age Resolved Age Notes LastModified by Organization Details LastModified Time Maternal Grandmother Hypertensive disorder [email or web address] Not available 2022 10:44:05 Mother Hypertensive disorder [email or web address] Not available 2022 10:44:05 Maternal Grandfather Malignant neoplasm of lung [email or web address] Not available 2022 10:44:05 Medical History No medical history recorded. Gynecological History Statement/Question Response Flow Moderate Date of LMP 12/03/2021 Frequency of Cycle (Q days) 24 Date of Last Pap Smear 06/25/2021 Duration of Flow (days) 7 Current Control Method Age at Menarche 12 Obstetrics History GPAL:G 3 P 4 0 1 4 Type Value Multiple Births 1 Full Term 4 Spontaneous 1 Living 4 Total 3 Past Encounters Encounter ID Performer Location Encounter Start Date Encounter Closed Date Diagnosis/Indication Diagnosis SNOMED-CT Code Diagnosis ICD10 Code Diagnosis Note [id number] Jersey Loving MD [facility] [address] [place] [address] 07/07/2022 10:41:46 07/12/2022 14:41:01 Uterine size for dates discrepancy 387728332 O26.849 edc 10-09-22 not 09-09-22 and bmi 39 and measuring large Monochorio marcelle diamniotic twin 351285144 O30.009 Insufficie nt care 9369226123 109 O09.33 has had care since 1st trimester w/Mobap and adequate US Gestation period, 30 weeks 66337082 Z3A.30 Routine an tenatal care 397962986 Z34.93 [id number] CARMINA GOLDMAN DO [facility] [address] [place] [address] 09/10/2022 10:32:18 09/10/2022 15:33:57 Gestation period, 35 weeks 78272423 Z3A.35 Routine an tenatal care 728469431 Z34.93 Twin 01653763 O30.009 mono-diGro wths completed FW (A): 12%ileEFW (B): 11%ileBPP 11/09 on 09/09 Obesity 669206723 E66.9 Health Concerns Section Related Observation LastModified by Organization Detai ls LastModified Time None Recorded Concern Status LastModified by Organization Details LastModified Time None Recorded Advance Directives Directive None Recorded Payers Insurance Date Sequence Insurance Name Policy Number Policy Naranjo Covered Member ID Naranjo Member ID Guarantor Name 09/10/2022 1 [employer] [facility] [place] ON OR AFTER 03/04/2020 (MEDICAID REPLACEMENT - HMO) Megan Ruiz [id number] Megan Ruiz Notes Date Note Type Note Provider Name and Address Organization Details Recorded Time 07/07/2022 text/html Pt is here today for new OB visit. Pt LMP is 12/03/21. Pt stated she has had care in [place]. Jersey Loving MD [address] [place], [address], [facility] 07/11/2022 15:29:14 09/10/2022 text/html Pt here for KESHAV in third trimester. +FM, denies VB, LOF. Denies STEWARD, vision changes, RUQ pain, contractions CARMINA GOLDMAN DO [address] [facility] [address], [place], [address], [facility] 09/12/2022 10:30:35 OBGyn Episode Ob Episode Information Episode Created Date Number of Fetuses Patient Bloodtype Patient rh Status Prepregnancy Weight lbs Domestic Partner Domestic Partner Phone Father Name Field Service Technician Status 07/08/19 1 CLOSED Fetus Data First Name Last Name Admitted to NICU Weight (g) Sex Living Outcome Pediatric Complications Fetus ID Race Codes Race Delivery Type 2834.95 F Full Term [id number] Barrett Calculation Initial Barrett Date Initial Exam Date Initial Exam Provider Initial Ultrasound Date Last Menstrual Period Date Ultra Sound Weeks Gestation 0 Eighteen To Twenty Week Barrett Update Ultra Sound Date Fundal Height At Umbil Quickening Date Ultra Sound Latest Weeks Gestation Final Barrett Confirmed By Final Barrett Confirmed Date Final Barrett Date Ultra Sound Latest Days Gestation 0 0 Menstrual History Last Menstrual Date Menses Monthly On Bcp Conception Prior Menses Frequency Hcg Plus Date Menarche Onset Age Delivery Information Delivery Date Delivery Type Labor Anesthesia Weeks Gestation Incision Type Labor Labor Length Hrs Delivered By Post Complications Tubal Sterilization Discharge Date Comments 1 Discharge Information Feeding Method Contraceptive Method Maternal HG B and HCT Levels Ob Episode Information Episode Created Date Number of Fetuses Patient Bloodtype Patient rh Status Prepregnancy Weight lbs Domestic Partner Domestic Partner Phone Father Name Field Service Technician Status 07/08/19 23 2 CLOSED Fetus Data First Name Last Name Admitted to NICU Weight (g) Sex Living Outcome Pediatric Complications Fetus ID Race Codes Race Delivery Type 2324.65 9 M true Full Term [id number] 2579.80 45 M true Full Term [id number] Problems Problem Notes Transfer sec to fernanda martinez w/US tech at [facility] and she lives in [place]::::earliest US was 15 weeks and edc was consistent with LMP per and anaotmy scan was wnl on 05-25-22 and A was 81% and B was 84% and had bad experience and didnt go backand we will have low noguera, growth scan 07-07-22 had the wrong edc(no records yet other than her My chart which had all the US on it) Problem Name Start Date End Date Resolution Snomed Code Not e Twin [id number] monoc hrionic and diamniotic and had been seeing MFM at [facility] and had an incident and 05-25-22 had anatomy w/[employer] tech and didnt want to drive that far and hopes for a vaginal delivery Obesity 507314734 type 2 Barrett Calculation Initial Barrett Date Initial Exam Date Initial Exam Provider Initial Ultrasound Date Last Menstrual Period Date Ultra Sound Weeks Gestation 10/09/2022 07/07/2022 04/21/2022 01/02/2022 15 Eighteen To Twenty Week Barrett Update Ultra Sound Date Fundal Height At Umbil Quickening Date Ultra Sound Latest Weeks Gestation Final Barrett Confirmed By Final Barrett Confirmed Date Final Barrett Date Ultra Sound Latest Days Gestation 0 [email or web address] 07/11/2022 10/10/19 23 0 Pre- Flowsheet Flowsheet Date 07/07/2022 King Score Blood Edema Fundus Height Fundus Units Glucose Ketones Leukocytes Nitrite Labor Signs Protein Cervic Dilation Cervic Effacement Cervic Station none 32 Type Weight in lbs Pre/Post Dialysis Refused With clothes 234.374082928512 BP Diastolic BP Location Tested BP Systolic BP Type 86 L arm 118 sitting Fetus Heart Rate Present A 150 Present B 141 Present Fetus Movement Comments Flowsheet Date 09/10/2022 King Score Blood Edema Fundus Height Fundus Units Glucose Ketones Leukocytes Nitrite Labor Signs Protein Cervic Dilation Cervic Effacement Cervic Station Type Weight in lbs Pre/Post Dialysis Refused Weight 248.727746111976 BP Diastolic BP Location Tested BP Systolic BP Type 72 132 Fetus Heart Rate Present Fetus Movement Comments Pt is a late HELEN from [facility] with mono-di twins. She has not been seen in our office for 2 months. I asked her and she said she is unable to make trips to see MFM and us every week. Discussed importance of seeing us as well as she plans to deliver with us. She asked about induction of labor, both fetuses are on the smaller side of normal 12%ile and 11%ile, discussed being induced at 36w6d. As I began to discuss the size of the fetuses patient became upset and left before heart tones could be auscultated. will have nursing staff reach out to discuss induction. Menstrual History Last Menstrual Date Menses Monthly On Bcp Conception Prior Menses Frequency Hcg Plus Date Menarche Onset Age 1001/02/2022 Delivery Information Delivery Date Delivery Type Labor Anesthesia Weeks Gestation Incision Type Labor Labor Length Hrs Delivered By Post Complications Tubal Sterilization Discharge Date Comments 3 Induce d Regional-Ep idural 37.1 false false Discharge Information Feeding Method Contraceptive Method Maternal HG B and HCT Levels Bottle Ob Episode Information Episode Created Date Number of Fetuses Patient Bloodtype Patient rh Status Prepregnancy Weight lbs Domestic Partner Domestic Partner Phone Father Name Field Service Technician Status 07/08/19 23 1 CLOSED Fetus Data First Name Last Name Admitted to NICU Weight (g) Sex Living Outcome Pediatric Complications Fetus ID Race Codes Race Delivery Type 3288.54 2 M Full Term [id number] Barrett Calculation Initial Barrett Date Initial Exam Date Initial Exam Provider Initial Ultrasound Date Last Menstrual Period Date Ultra Sound Weeks Gestation 0 Eighteen To Twenty Week Barrett Update Ultra Sound Date Fundal Height At Umbil Quickening Date Ultra Sound Latest Weeks Gestation Final Barrett Confirmed By Final Barrett Confirmed Date Final Barrett Date Ultra Sound Latest Days Gestation 0 0 Menstrual History Last Menstrual Date Menses Monthly On Bcp Conception Prior Menses Frequency Hcg Plus Date Menarche Onset Age Delivery Information Delivery Date Delivery Type Labor Anesthesia Weeks Gestation Incision Type Labor Labor Length Hrs Delivered By Post Complications Tubal Sterilization Discharge Date Comments 0 Discharge Information Feeding Method Contraceptive Method Maternal HG B and HCT Levels
--- OUTSIDE RECORDS SUMMARY | 2024-10-23 17:21 | XMS_ITS | Patient Health Record ---
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 Name Role Phone Azul Franco Primary Care Provider Reason For Referral No Information Medications Medication SIG (Take, Route, Frequency, Duration) Notes Start Date End Date Status Vitamin D 1000 UNIT 1 tablet Orally Once a day Active Albuterol Sulfate HFA 108 (90 Base) MCG/ACT 2 puffs as needed Inhalation every 4 hrs; Duration: 30 days 01/19/2016 Active Multivitamin Women - Orally Active Problems Problem Type SNOMED Code ICD Code Onset Dates Problem Status W/U Status Risk Notes Problem Obesity (E66.9) Active confirmed Plan Of Treatment No Information Insurance Providers Payer Name Payer Address Payer Phone Subscriber Number Group Number Insured Name Patient Relationship to Insured Coverage Start Date Coverage End Date Medicaid [employer] Primary Only [address] [place], [place] [id number] Megan Tyler Self - patient is the insured Medical (General) History Medical History History ICD Code basal cell carcinoma lesion on forhead r emoved eye surgery
--- NOTE | 2024-10-23 17:47 | ED.GENADULT ---
HPI - General Adult General Chief complaint: Extremity Injury, Upper Stated complaint: skin/laceration Time Seen by Provider: 10/23/24 17:20 Source: patient Mode of arrival: ambulatory Limitations: no limitations History of Present Illness HPI narrative: 34-year-old otherwise healthy with a complaint of laceration to her left wrist testing prior to coming to the ER. Patient states that she was helping her father in law fix a fence and she accidentally cut herself. Onset (ago): minute(s) (30) Location: upper extremity (left) Severity: moderate Quality: aching Pain Consistency: constant Relieving factors: none Exacerbating factors: none Associated symptoms: denies other symptoms Related Data Allergies Allergy/AdvReac Type Severity Reaction Status Date / Time No Known Allergies Allergy Verified 10/23/24 17:21 Review of Systems Review of Systems: All systems reviewed & are unremarkable except as noted in HPI and below Constitutional: Constitutional: Reports no additional constitutional complaints Eyes: Eyes: Reports no additional eye complaints ENT: Reports system reviewed and no additional complaints, except as documented Cardiovascular: Cardiovascular: Reports no additional cardiovascular complaints Respiratory: Respiratory: Reports no additional respiratory complaints Gastrointestinal: Gastrointestinal: Reports no additional gastrointestinal complaints Musculoskeletal: Musculoskeletal: Reports as per HPI PMFSH Past Medical History Medical History Patient denies medical problems Family History Family History Other No pertinent family history Social History Social History Smoking status: Never smoker Second hand tobacco smoke exposure: No Substance use: never Last use: 06/25/20 Gender identity (if verbalized by the patient): Female Sexual Orientation (if Verbalized by the Patient): Straight or Heterosexual Spiritual care concerns: No Exam Narrative: GENERAL: Well-appearing, well-nourished, and in no acute distress. HEAD: Normocephalic, atraumatic. EYES: PERRLA and EOMI. ENT: Nares clear, no rhinorrhea or epistaxis. Mucous membranes moist. NECK: Supple. CHEST: Clear to auscultation. No respiratory distress. HEART: Regular rate and rhythm. No murmur heard. Normal peripheral pulses. EXTREMITIES: Normal range of motion. No edema. has 4 cms lac on the left wrist. SKIN: Warm, dry, no rash. NEURO: No focal deficits. Alert and oriented x3. PSYCH: Normal mood and affect. Course Vital Signs Vital signs: Vital Signs Temperature 36.8 C 10/23/24 17:15 Pulse Rate 74 10/23/24 17:15 Respiratory Rate 16 10/23/24 17:15 Blood Pressure 117/68 10/23/24 17:15 Pulse Oximetry 97 10/23/24 17:15 Oxygen Delivery Room Air 10/23/24 17:15 Temperature 36.8 C 10/23/24 17:15 Pulse Rate 74 10/23/24 17:15 Respiratory Rate 16 10/23/24 17:15 Blood Pressure 117/68 10/23/24 17:15 Pulse Oximetry 97 10/23/24 17:15 Oxygen Delivery Room Air 10/23/24 17:15 Procedures Laceration Laceration 1: Date: 10/23/24 Time: 17:51 Site: upper extremity (left wrist) Side (If applicable): left Size (cm): 4 Description: linear Depth: simple, single layer Local Anesthetic: lidocaine 1% Amount of anesthesia used (mL): 10 ====== Skin Level ====== Skin layer closed with: nylon Size (cm): 4-0 Number of sutures: 8 Technique: running ====== Subcutaneous Layer ====== ====== Muscle Layer ====== ====== Tendon Layer ====== Medical Decision Making Vital Signs Vital Signs: Vital Signs Temperature 36.8 C 10/23/24 17:15 Pulse Rate 74 10/23/24 17:15 Respiratory Rate 16 10/23/24 17:15 Blood Pressure 117/68 10/23/24 17:15 Pulse Oximetry 97 10/23/24 17:15 Oxygen Delivery Room Air 10/23/24 17:15 Temperature 36.8 C 10/23/24 17:15 Pulse Rate 74 10/23/24 17:15 Respiratory Rate 16 10/23/24 17:15 Blood Pressure 117/68 10/23/24 17:15 Pulse Oximetry 97 10/23/24 17:15 Oxygen Delivery Room Air 10/23/24 17:15 Discharge Plan Discharge Clinical Impression: Laceration of left wrist Qualifiers: Encounter type: initial encounter Qualified Code(s): S61.512A - Laceration without foreign body of left wrist, initial encounter Patient Disposition: Home Condition: Stable Instructions: Antibiotic Form, Laceration (ED) Additional Instructions: KEEP THE WOUND CLEAN , sUTURES OFF 7 TO 10 DAYS , TAKE ANTIBIOTIC PRESCRIBED. CAN TAKE TYELNOL OR IBUPROFEN FOR PAIN Patient Language: British Prescriptions: New cephalexin 500 mg capsule 500 mg PO Q8H 7 Days Qty: 21 0RF ibuprofen 600 mg tablet 600 mg PO TID PRN (Reason: pain) Qty: 30 0RF Follow-up/Referrals: Randall Kamara DO [Physician] - PHYSICIAN,[facility] [Non-Staff] - Time of Disposition: 17:56
[2024-10-23] MEDS: LIDOCAINE 1% LOCAL INJ 10 ML VIAL INFILTRATE (17:48)
[2024-10-23] MEDS: TETANUS,DIPHTHERIA,AC PERTUSSIS ADULT 0.5 ML (ADACEL) IM (17:48)
== END 2024-10-23 18:06 | disposition home or self-care (01) ==
PROVIDERS: Emergency Provider Family Medicine
DX: S61.512A Laceration without foreign body of left wrist, initial encounter (principal); Z23 Encounter for immunization; W45.8XXA Other foreign body or object entering through skin, initial encounter
CPT/HCPCS: 12002; 90471; 90715; 99283; J2003

== ENCOUNTER 2024-11-12 08:35 | Emergency (ER) | payer OTHER, SELFPAY ==
[2024-11-12 08:37] VITALS: BP 133/79; PULSE 75; RESP 20; TEMP 36.7; O2SAT 98
--- OUTSIDE RECORDS SUMMARY | 2024-11-12 08:38 | XMS_ITS | Patient Health Record ---
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
--- NOTE | 2024-11-12 08:40 | ED_ITS ---
HPI - General Adult General Chief complaint: Wound/Laceration Stated complaint: suture removal Time Seen by Provider: 11/12/24 08:39 Source: patient Mode of arrival: ambulatory Limitations: no limitations History of Present Illness HPI narrative: patient had laceration left wrist 2 weeks ago, Eight sutures, came for removal . She denies fever, chills, nausea, vomiting or pain or discharge. Related Data Allergies Allergy/AdvReac Type Severity Reaction Status Date / Time No Known Allergies Allergy Verified 11/12/24 08:43 Review of Systems Review of Systems: All systems reviewed & are unremarkable except as noted in HPI and below PMFSH Past Medical History Medical History Patient denies medical problems Family History Family History Other No pertinent family history Social History Social History Smoking status: Never smoker Second hand tobacco smoke exposure: No Substance use: never Last use: 06/25/20 Gender identity (if verbalized by the patient): Female Sexual Orientation (if Verbalized by the Patient): Straight or Heterosexual Spiritual care concerns: No Exam Narrative: General appearance: Well-developed, well-nourished Skin: Normal color ,left wrist exam showed 7-8 sutures, the wound is dry and clean Vascular: Normal peripheral pulses, normal capillary refill. Musculoskeletal: Normal range of motion, nontender back Neurologic: Alert and oriented ?3, [employer] is normal as tested, no gross motor deficit Critical Care Time Critical Care Time Critical Care Time: No Discharge Plan Discharge Clinical Impression: Visit for suture removal Patient Disposition: Home Condition: Stable Instructions: Stitches Removal (ED) Additional Instructions: Return if symptoms are worsening , call your family physician for appointment, take Tylenol as as needed for aches and pain, continue home medications. Patient Language: Mexican Prescriptions: No Action cephalexin 500 mg capsule 500 mg PO Q8H 7 Days Qty: 21 0RF ibuprofen 600 mg tablet 600 mg PO TID PRN (Reason: pain) Qty: 30 0RF Follow-up/Referrals: UNKNOWN,DOCTOR [Primary Care Provider] -
== END 2024-11-12 09:17 | disposition home or self-care (01) ==
LOC: CHSED 09:09
PROVIDERS: Emergency Provider Emergency Medicine; PCP Family Medicine
DX: Z48.02 Encounter for removal of sutures (principal)
CPT/HCPCS: 15853; 99282